=== PATIENT | female | born 2000 | race Caucasian/White ===

== ENCOUNTER 2022-05-03 15:17 | Inpatient (IN) | payer OTHER ==
[~2022-05-03 15:17] MED LIST: Bupivacaine 0.25% HCL 30 ML VIAL ONE; Terbutaline Sulfate 1 MG/ML VIAL ONE
[2022-05-03] MEDS ORDERED: Carboprost 250 MCG/ML AMP IM PRN (15:22)
[2022-05-03] MEDS ORDERED: Promethazine HCl 25 MG/ML VIAL IM PRN (15:22)
[2022-05-03] MEDS ORDERED: Misoprostol 200 MCG TAB PR PRN (15:22)
[2022-05-03] MEDS ORDERED: Diphenoxylate HCl/Atropine Tablet PO PRN ×2 (15:22)
[2022-05-03] MEDS ORDERED: Ibuprofen 800 MG TAB PO PRN (15:22)
[2022-05-03] MEDS ORDERED: HYDROcodone/Acetaminophen 5/325 mg Tablet PO PRN (15:22)
[2022-05-03] MEDS ORDERED: Lidocaine 1% (PF) 30 ML VIAL SC PRN (15:22)
[2022-05-03] MEDS ORDERED: hydrALAZINE 20 MG/ML VIAL SLOW IVP PRN (15:22)
[2022-05-03] MEDS ORDERED: Zolpidem Tartrate 5 MG TAB PO PRN (15:22)
[2022-05-03] MEDS ORDERED: Acetaminophen 500 MG TAB PO PRN (15:22)
[2022-05-03] MEDS ORDERED: Misoprostol 100 MCG TAB PO SCH (15:30)
[2022-05-03] MEDS ORDERED: NS w/ Oxytocin 30 units 500 ML IV SCH ×2 (15:30)
[2022-05-03 16:33] LABS: Hemoglobin 11.1 g/dL (12.0-15.5); Mean Corpuscular HGB CONC 34.4 g/dL (32.0-36.0); Mean Corpuscular Volume 90.2 fl (81.6-98.3); Mean Platelet Volume 10.7 fl (7.4-10.4); Platelet Count 233 10x3/uL (150-450); Red Blood Cell (RBC) Count 3.58 10x6/uL (3.90-5.03); White Blood Cell (WBC) Count 6.3 10x3/uL (3.5-10.5)
[2022-05-03 16:38] VITALS: BMI 31.0
[2022-05-03 17:06] LABS: Syphilis Antibody Nonreactive (Nonreactive); Syphilis Antibody Index 0.03 S/CO (<1.00 Non-Reactive)
[2022-05-03 17:07] LABS: HBSAg Index 0.19 S/CO (0-0.99); Hep B Surf Ag Non-Reactive S/CO (NonReactive)
[2022-05-03] MEDS ORDERED: Calcium Carbonate 500 MG ChewTAB PO PRN (23:56)
[2022-05-04] MEDS: Ondansetron PF 4 MG/2 ML Vial IVP PRN ×3 (01:11→17:26)
[2022-05-04] MEDS: Butorphanol Tartrate 1 MG/ML VIAL SLOW IVP PRN ×3 (01:12→10:42)
[2022-05-04] MEDS ORDERED: Misoprostol 100 MCG TAB ONE (09:10)
[2022-05-04] MEDS ORDERED: Fentanyl 2 mcg/Bup 0.1% Cadd 100 ML ONE (12:19)
[2022-05-04] MEDS ORDERED: NS w/ Oxytocin 30 units 500 ML ONE (12:20)
[2022-05-04] MEDS ORDERED: Lactated Ringer's 500 ML IV PRN (12:21)
[2022-05-04] MEDS ORDERED: Moisturizing Cream (Eucerin) 113 GM JAR TOP PRN (12:21)
[2022-05-04] MEDS ORDERED: Naloxone HCl 0.4 mg/ml Vial IVP PRN ×2 (12:21)
[2022-05-04] MEDS ORDERED: Promethazine HCl 25 MG/ML VIAL IM PRN (12:21)
[2022-05-04] MEDS ORDERED: Ondansetron PF 4 MG/2 ML Vial IVP PRN (12:21)
[2022-05-04] MEDS ORDERED: ePHEDrine Sulfate 50 MG/10 ML VIAL SLOW IVP PRN (12:21)
[2022-05-04] MEDS ORDERED: diphenhydrAMINE 50 MG/ML VIAL IVP PRN (12:21)
[2022-05-04] MEDS ORDERED: Acetaminophen 325 MG TAB PO PRN (12:21)
[2022-05-04] MEDS ORDERED: Communication Order-Pharmacy FS SCH (12:30)
[2022-05-04] MEDS ORDERED: Fentanyl 2 mcg/Bupivacaine 0.1% Cassette 100 ML EPIDURAL SCH (12:30)
[2022-05-04 16:59] LABS: SARS-CoV-2 NAA Rapid Test Not Detected (NotDetected)
[2022-05-04] MEDS ORDERED: Lidocaine 1% (PF) 30 ML VIAL ONE (18:30)
[2022-05-04] MEDS: Lactated Ringer's 1,000 ML IV SCH ×2 (22:41→22:42)
[2022-05-04] MEDS ORDERED: Benzocaine-Menthol 82.5 ML CAN TOP PRN (23:07)
[2022-05-05] MEDS: Docusate 100 MG CAP PO PRN ×2 (07:51→22:40)
[2022-05-05] MEDS: Lactated Ringer's 1,000 ML IV SCH ×4 (07:53→21:42)
[2022-05-05] MEDS ORDERED: HYDROcodone/Acetaminophen 5/325 mg Tablet PO PRN (08:08)
[2022-05-05] MEDS: Ibuprofen 800 MG TAB PO SCH ×3 (09:09→22:37)
[2022-05-05] MEDS: HYDROcodone/Acetaminophen 5/325 mg Tablet PO PRN ×3 (09:10→20:11)
[2022-05-05 18:00] LABS: HIV (1/2) Antibody/Antigen Non-Reactive (NonReactive); HIV 1/2 INDEX 0.16 S/CO (<1.00)
[2022-05-06] MEDS: Ibuprofen 800 MG TAB PO SCH (05:17)
[2022-05-06] MEDS: Lactated Ringer's 1,000 ML IV SCH (08:41)
[2022-05-06 08:49] VITALS: BP 120/77; TEMP 98
[2022-05-06] MEDS: Docusate 100 MG CAP PO PRN (09:28)
[2022-05-06] MEDS: HYDROcodone/Acetaminophen 5/325 mg Tablet PO PRN (11:12)
== END 2022-05-06 12:40 | disposition home or self-care (01) | DRG 806 ==
LOC: CSHLD 15:17 → CSHPP 05-04 21:35
PROVIDERS: ADMIT Obstetrics & Gynecology; ATTEND Obstetrics & Gynecology
PROC: 10E0XZZ Delivery of Products of Conception, External Approach (ICD-10-PCS; principal; 2022-05-04)
DX: O13.4 Gestational [pregnancy-induced] hypertension without significant proteinuria, complicating childbirth (principal); O98.52 Other viral diseases complicating childbirth; Z37.0 Single live birth; Z20.822 Contact with and (suspected) exposure to COVID-19; O70.0 First degree perineal laceration during delivery; O71.82 Other specified trauma to perineum and vulva; Z3A.39 39 weeks gestation of pregnancy; K21.9 Gastro-esophageal reflux disease without esophagitis; O99.62 Diseases of the digestive system complicating childbirth; B00.9 Herpesviral infection, unspecified; Z79.899 Other long term (current) drug therapy
CPT/HCPCS: 51702; 85027; 86780; 86850; 86900; 86901; 87340; 87389; J0595; J2405; J3105; S0020; U0002